=== PATIENT | female | born 1980 | race Caucasian/White ===

== ENCOUNTER 2016-04-02 11:50 | Emergency (ER) | payer BC ==
[2016-04-02 12:36] VITALS: BP 136/79
[2016-04-02] MEDS ORDERED: Ibuprofen TAB* 600 MG PO ONE (12:39)
[2016-04-02] MEDS ORDERED: Ondansetron INJ* 2 MG/ML VIAL IV ONE (12:49)
[2016-04-02] MEDS ORDERED: Ketorolac INJ* 30 MG/ML 1 ML VIAL IV PUSH ONE (12:49)
[2016-04-02] MEDS ORDERED: Morphine INJ* 2 MG/ML 1 ML CARPUJECT IV ONE (12:49)
[2016-04-02] MEDS ORDERED: NS 0.9% 1000 ML* 1,000 ML BOLUS ONE (12:49)
--- NOTE | 2016-04-02 12:54 | UC ---
Elbow Pain - HPI Summary HPI Summary: Slipped on ice, fell directly onto L elbow. Also has sore shoulder, but not worried about that at the moment. No hx elbow fx or surgery. - History of Current Complaint Chief Complaint: UCUpperExtremity Stated Complaint: LEFT ELBOW INJURY FROM FALL Time Seen by Provider: 04/02/16 12:38 Hx Obtained From: Patient Hx Last Menstrual Period: 03/18/16 ?: No Onset/Duration: Hours Severity Initially: Moderate Severity Currently: Moderate Character: Aching, Stiffness Aggravating Factor(s): Movement Alleviating Factor(s): Rest, Ice Associated Signs And Symptoms: Positive: Swelling - Allergies/Home Medications Allergies/Adverse Reactions: Allergies Allergy/AdvReac Type Severity Reaction Status Date / Time Adhesive Tape Allergy Rash Verified 04/02/16 12:36 PMH/Surg Hx/FS Hx/Imm Hx Previously Healthy: Yes - Surgical History Surgical History: None - Family History Known Family History: Negative: Blood Disorder - Social History Occupation: Employed Full-time - dental hygenist Lives: With Family Alcohol Use: Daily Alcohol Amount: 1-2 wine Substance Use Type: None Smoking Status (MU): Former Smoker - Immunization History Most Recent Tetanus Shot: 10/2014 Review of Systems Constitutional: Negative Skin: Negative Eyes: Negative ENT: Negative Respiratory: Negative Cardiovascular: Negative Gastrointestinal: Negative Genitourinary: Negative Motor: Negative Neurovascular: Negative Musculoskeletal: Arthralgia, Decreased ROM Neurological: Negative Psychological: Negative All Other Systems Reviewed And Are Negative: Yes Physical Exam Triage Information Reviewed: Yes Appearance: Well-Appearing, Well-Nourished, Pain Distress - mod Vital Signs: Initial Vital Signs Temp 98.8 F 04/02/16 12:28 Pulse 76 04/02/16 12:28 Resp 18 04/02/16 12:28 BP 136/79 04/02/16 12:28 Vital Signs Reviewed: Yes Eye Exam: Normal Eyes: Positive: Conjunctiva Clear ENT Exam: Normal ENT: Positive: Normal ENT inspection, Hearing grossly normal, Pharynx normal, TMs normal Dental Exam: Normal Neck exam: Normal Neck: Positive: Supple, Nontender, No Lymphadenopathy Respiratory Exam: Normal Respiratory: Positive: Chest non-tender, Lungs clear, Normal breath sounds, No respiratory distress, No accessory muscle use Cardiovascular Exam: Normal Cardiovascular: Positive: RRR, No Murmur Musculoskeletal: Positive: ROM Limited @ - L elbow, Other: - tender on olecranon Neurological Exam: Normal Neurological: Positive: Alert, Muscle Tone Normal Psychological Exam: Normal Skin Exam: Normal Elbow Pain Course/Dx - Differential Dx/Diagnosis Provider Diagnoses: L elbow effusion. occult fx L elbow Discharge - Discharge Plan Condition: Stable Disposition: HOME Prescriptions: HYDROcodone/ACETAMIN 5-325 MG* [[place] 5-325 TAB*] 1 tab PO Q6H PRN #7 tab MDD 4 PRN Reason: Pain Patient Education Materials: SUSPECTED FRACTURE (ED), Hemarthrosis (ED) Forms: *Work Release Referrals: Hanane Sandoval MD [Medical Doctor] - 1 Week Additional Instructions: You can reach the [facility] at [phone]. There was no fracture identified on x-ray, so this may simply be a hard contusion. You could be more or less back to normal in the next week or so, if there is no bony injury.
--- NOTE | 2016-04-02 13:06 | RAD ---
INDICATION: Left elbow pain COMPARISON: None TECHNIQUE: AP, lateral, and oblique views were obtained. FINDINGS: The bony structures, joint spaces, and soft tissues are normal for age. IMPRESSION: NO ACUTE FRACTURE
== END 2016-04-02 13:29 | disposition home or self-care (01) ==
LOC: UCCORT 11:50
DX: M25.422 Effusion, left elbow (principal); Z87.891 Personal history of nicotine dependence
CPT/HCPCS: 99213; A9270-GY; G0463

== ENCOUNTER 2019-03-09 10:55 | Emergency (ER) | payer BC ==
--- OUTSIDE RECORDS SUMMARY | 2019-03-09 11:09 | XMS REPORT | Continuity of Care Document ---
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 Problems Active Problems Provider Date Thyroiditis Esthela Hightower FNP Onset: 10/14/2011 Malaise and fatigue Esthela Hightower FNP Onset: 10/14/2011 Social History Type Date Description Comments Sex Unknown Tobacco Use Start: Unknown End: Former Cigarette Smoker Unknown ETOH Use Occasionally consumes a couple times a week alcohol at most Tobacco Use Start: Unknown End: Patient is a former smoker Unknown Smoking Status Reviewed: 02/22/19 Patient is a former smoker Allergies, Adverse Reactions, Alerts Active Allergies Reaction Severity Comments Date Adhesives Contact dermatitis, itchiness 10/23/2015 Medications Active Medications SIG Qnty Indications Ordering Provider Date Naproxen 1 tabs by mouth 60tabs S46.012A Lakisha Collins MD 02/22/2019 375mg Tablets twice a day with food for pain. [place]-28 take one tablet 28tabs Other Provider 01/06/2017 0.15-30mg-mcg by mouth every Tablets day * monday start date Immunizations CPT Code Status Date Vaccine Lot # [id number] Given 01/06/2017 Influenza Virus Vaccine Quadrivalent Iiv4 [place] [id number] [id number] Given 03/02/2012 flu vaccination Vital Signs Date Vital Result Comment 02/22/2019 2:53pm BP Systolic 124 mmHg BP Diastolic 72 mmHg Body Temperature 98.5 F Heart Rate 75 /min Respiratory Rate 18 /min Height 69 inches 5'9" Weight 189.00 lb BMI (Body Mass Index) 27.9 kg/m2 BSA (Body Surface Area) 2.02 m2 Advance body weight in kilograms 66 kg O2 % BldC Oximetry 98 % 05/04/2018 8:45am BP Systolic 130 mmHg BP Diastolic 80 mmHg Body Temperature 98.5 F Heart Rate 102 /min Respiratory Rate 18 /min Weight 193.00 lb O2 % BldC Oximetry 98 % Results Description No Information Available Procedures Date Code Description Status 11/04/2016 [id number] Mammogram Completed Medical Devices Description No Information Available Encounters Description No Information Available Assessments Date Code Description Provider 02/22/2019 S46.012A Strain of muscle(s) and tendon(s) of the Savanah Mejias PA rotator cuff of left shoulder, initial encounter Plan of Treatment 02/22/2019 - Savanah Mejias PAS46.012A Strain of muscle(s) and tendon(s) of the rotator cuff of left shoulder, initial encounterNew Medication:Naproxen 375 mg - 1 tabs by mouth twice a day with food for pain.Comments:Moist heat or Ice 15- 20 minutes several times a day. Keep using the [employer]. over the weekend, as needed. Try work on Monday without. Continue to have your spouse massage the affected areas. . Performstretches as demonstrated in office today. Call if you want to start PT. Functional Status Description No Information Available Mental Status Description No Information Available Referrals Description No Information Available
--- OUTSIDE RECORDS SUMMARY | 2019-03-09 11:09 | XMS REPORT | Continuity of Care Document ---
:1980 External Reference #:[id number] Author Name Jose M Flores MD (transmitted by agent of provider David Nunez) Address [address] [place] [address] Care Team Providers Name Role Phone Savanah Mejias PA - Physician Care Team Information [employer] 1 Operator [phone] [address] Problems Description No Information Available Social History Type Date Description Comments Sex Unknown Tobacco Use Start: Unknown End: Former Cigarette Smoker Unknown Tobacco Use Start: Unknown Never Smoked Cigars Tobacco Use Start: Unknown Never Smoked A Pipe Smokeless Tobacco Never Used Smokeless Tobacco ETOH Use Drinks 5 Alcoholic Beverages Per Week Tobacco Use Start: Unknown End: Patient is a former smoker Occasional Unknown Recreational Drug Use Denies Drug Use Exercise Type/Frequency Exercises regularly Allergies, Adverse Reactions, Alerts Active Allergies Reaction Severity Comments Date NKDA 03/01/2019 Adhesives 08/23/2010 Medications Active Medications SIG Qnty Indications Ordering Provider Date Naproxen TK 1 T PO bid Unknown 375mg Tablets WF P [place] TK 1 T PO qd Unknown 0.15-30mg-mcg Tablets Medications Administered in Office Medication SIG Qnty Indications Ordering Provider Date Celestone 3 mg and 3mg Jose M Flores MD 03/01/2019 Injection Immunizations Description No Information Available Vital Signs Date Vital Result Comment 03/01/2019 9:24am Height 67.5 inches 5'7.50" Weight 187.38 lb Heart Rate 67 /min BP Systolic Sitting 124 mmHg BP Diastolic Sitting 80 mmHg Respiratory Rate 12 /min Body Temperature 98.2 F Pain Level 4 O2 % BldC Oximetry 99 % BMI (Body Mass Index) 28.9 kg/m2 Results Description No Information Available Procedures Date Code Description Status 03/01/2019 Inject/Drain Joint/Bursa Major W/O US Completed Medical Devices Description No Information Available Encounters Type Date Location Provider Dx Diagnosis Office Visit 03/01/2019 [facility] Jose M Flores, M75.42 Impingement 9:30a at [place] syndrome of left shoulder Assessments Date Code Description Provider 03/01/2019 M75.42 Impingement syndrome of left shoulder Jose M Flores MD Plan of Treatment 03/01/2019 - Jose M Flores, MDM75.42 Impingement syndrome of left shoulderNew Therapy:Physical TherapyFollow up:Follow up: As needed Functional Status Description No Information Available Mental Status Description No Information Available Referrals Description No Information Available
[2019-03-09 12:09] VITALS: BP 130/76
--- NOTE | 2019-03-09 12:34 | UC ---
Laceration HPI - HPI Summary HPI Summary: 38-year-old female presents for a laceration of her left pinky finger. States her this morning she accidentally cut her finger on the lid of an aluminum can. Bleeding was controlled prior to arrival direct pressure. Reports full range of motion to the finger. Last tetanus was 2014. Denies any numbness or tingling. - History Of Current Complaint Chief Complaint: UCLowerExtremity Stated Complaint: LEFT PINKY LACERATION Time Seen by Provider: 03/09/19 12:02 Hx Obtained From: Patient Hx Last Menstrual Period: 02/16/19 Pain Intensity: 0 - Allergies/Home Medications Allergies/Adverse Reactions: Allergies Allergy/AdvReac Type Severity Reaction Status Date / Time Adhesive Tape Allergy Rash Verified 03/09/19 12:04 Home Medications: Home Medications Naproxen [Naprosyn 500 mg tab] 500 mg PO BID 03/09/19 [History Confirmed ] PMH/Surg Hx/FS Hx/Imm Hx Previously Healthy: Yes - Denies significant PMH - Surgical History Surgical History: None - Family History Known Family History: Positive: Non-Contributory - Social History Occupation: Employed Full-time Lives: With Family Alcohol Use: Daily Alcohol Amount: 1-2 wine Substance Use Type: None Smoking Status (MU): Former Smoker - Immunization History Most Recent Tetanus Shot: 10/2014 Review of Systems All Other Systems Reviewed And Are Negative: Yes Constitutional: Positive: Negative Skin: Positive: Other - See HPI Respiratory: Positive: Negative Cardiovascular: Positive: Negative Gastrointestinal: Positive: Negative Genitourinary: Positive: Negative Motor: Negative: Weakness Neurovascular: Negative: Decreased Sensation Musculoskeletal: Negative: Decreased ROM Neurological: Positive: Negative Is Patient Immunocompromised?: No Physical Exam - Summary Physical Exam Summary: GENERAL APPEARANCE: Well developed, well nourished, alert and cooperative, and appears to be in no acute distress. CARDIAC: Normal S1 and S2. No S3, S4 or murmurs. Rhythm is regular. There is no peripheral edema, cyanosis or pallor. Extremities are warm and well perfused. Capillary refill is less than 2 seconds. Peripheral pulses intact. LUNGS: Clear to auscultation without rales, rhonchi, wheezing or diminished breath sounds. ABDOMEN: Positive bowel sounds. Soft, nondistended, nontender. No guarding or rebound. No masses or hepatosplenomegally. MUSKULOSKELETAL: ROM intact to all extremities. No joint erythema or tenderness. Normal muscular development. Normal gait. EXTREMITIES: Superficial linear laceration to the lateral aspect of the lateral left pinky finger with wound margins in good approximation. Bleeding controlled. Full ROM. Circulation and sensation intact. SKIN: Skin normal color, texture and turgor. Triage Information Reviewed: Yes Vital Signs: Initial Vital Signs Temp 98.2 F 03/09/19 11:59 Pulse 73 03/09/19 11:59 Resp 16 03/09/19 11:59 BP 130/76 03/09/19 11:59 Pulse Ox 100 03/09/19 11:59 Vital Signs Reviewed: Yes Laceration Repair - Laceration Repair 1 Description: Linear - Lateral aspect distal left pinky finger Laceration Size After Repair: Length (cm) - 0.8 cm Modified For Repair: No Irrigation With Pressure Irrigation Device: Yes Closure Material: Skin Adhesive, SteriStrips Laceration Course/Dx - Course/Dx Course Of Treatment: 38-year-old female presents for a laceration of her left pinky finger. States her this morning she accidentally cut her finger on the lid of an aluminum can. Bleeding was controlled prior to arrival direct pressure. Reports full range of motion to the finger. Last tetanus was 2014. Denies any numbness or tingling. Afebrile. Vital signs stable. Patient had a superficial linear laceration to the lateral aspect of the lateral left pinky finger with wound margins in good approximation, bleeding was controlled. She had full ROM to the finger with circulation and sensation intact. The laceration was repaired using a single 1/8 inch Steri-Strip and skin adhesive. Total length of the wound after repair was 0.8 cm. She is to follow-up with her primary care provider as needed. Wound care, anticipatory guidance, and warning symptoms were reviewed with the patient. Verbalizes understanding and agrees care. - Differential Dx - Laceration/Wound Differental Diagnoses: Laceration, Tendon Laceration - Diagnosis Provider Diagnosis: Laceration of left little finger Discharge ED - Sign-Out/Discharge Documenting (check all that apply): Patient Departure All imaging exams completed and their final reports reviewed: No Studies - Discharge Plan Condition: Stable Disposition: HOME Patient Education Materials: Laceration (ED), Skin Adhesive Care (ED), Steristrips (ED) Referrals: Candelaria Spear MD [Primary Care Provider] - If Needed Additional Instructions: Your laceration as repaired with a combination of skin adhesive and Steri- Strips. The adhesive will slowly wear off over the next several days. Keep the adhesive dry for the next 24 hours. After 24 hours you may shower and wash your hands as usual. Do not apply any lotions aor ointments to the adhesive as this may dissolve the adhesive and cause the wound to reopen. The Steri-Strips will slowly peel up from the ends over the next few days. You may trim the ends as needed but do not pull off or you may reopen the wound. Keep the wound covered with a dressing. Change this at least once a day or anytime the dressing becomes wet or soiled. Take acetaminophen (Tylenol) or ibuprofen (Advil, Motrin) according to directions as needed for pain. Watch for signs of infection including fever greater than 100.5 F, severe pain not managed with with pain medicine, redness that spreads, swelling of the finger, pus draining from the wound, or any worsening of symptoms. Seek immediate medical attention if any of these occur. - Billing Disposition and Condition Condition: STABLE Disposition: Home
== END 2019-03-09 12:51 | disposition home or self-care (01) ==
LOC: UCCORT 10:55
DX: S61.217A Laceration without foreign body of left little finger without damage to nail, initial encounter (principal); Z87.891 Personal history of nicotine dependence; Z91.09 Other allergy status, other than to drugs and biological substances; W26.8XXA Contact with other sharp object(s), not elsewhere classified, initial encounter; Y92.9 Unspecified place or not applicable
CPT/HCPCS: 12001; 99211; G0463